=== PATIENT | female | born 1975 | race Caucasian/White ===

== ENCOUNTER 2018-03-13 21:46 | Emergency (ER) | payer SELFPAY ==
[~2018-03-13] VITALS: Ht 154.9 cm; Wt 96.2 kg
[2018-03-13 21:53] VITALS: Ht 154.9 cm; Wt 96.2 kg
[2018-03-13 22:16] LABS: BASOPHIL % 0.1 % (0-2); PLATELET COUNT 245 x10^3mcL (130-400)
[2018-03-13 22:25] LABS: CALCIUM 8.8 mg/dL (8.5-10.1); CARBON DIOXIDE 22.1 mmol/L (21-32); CHLORIDE SERUM 101 mmol/L (98-107); CREATININE SERUM 0.9 mg/dL (0.6-1.0); GFR1 > 60 mL/min; GLUCOSE SERUM 105 mg/dL (74-106); POTASSIUM SERUM 3.2 mmol/L (3.5-5.1); SODIUM SERUM 138 mmol/L (136-145)
[2018-03-13 22:31] LABS: ALBUMIN 3.5 g/dL (3.4-5.0); ALKALINE PHOSPHATASE 70 U/L (46-116); ALT/SGPT 29 U/L (14-59); AST/SGOT 19 U/L (15-37); BILIRUBIN TOTAL 0.5 mg/dL (0.20-1.00); TOTAL PROTEIN, SERUM 7.4 g/dL (6.4-8.2)
[2018-03-13 22:35] LABS: RED CELL DISTRIBUTION WIDTH 15.1 % (11.5-14.5)
[2018-03-14 00:03] VITALS: BP 155/93
== END 2018-03-14 00:03 | disposition home or self-care (01) ==
LOC: ED 21:46
PROVIDERS: Emergency Medicine
DX: N10 Acute pyelonephritis (principal); E87.6 Hypokalemia; G43.909 Migraine, unspecified, not intractable, without status migrainosus
CPT/HCPCS: J0696; J1885; J2405; J7030; Q0092

== ENCOUNTER 2018-03-17 17:40 | Inpatient (IN) | payer BC ==
[~2018-03-17] VITALS: Ht 154.9 cm; Wt 93.4 kg
[2018-03-17 18:08] VITALS: Ht 154.9 cm; Wt 93.4 kg
[2018-03-17] MEDS ORDERED: GOOD SENSE OMEP20 MG PO (19:00)
[2018-03-17 19:17] LABS: AMPHETAMINE QUAL UR POSITIVE (See below)
[2018-03-17 19:23] LABS: BASOPHIL % 1.1 % (0-2); PLATELET COUNT 217 x10^3mcL (130-400)
[2018-03-17 19:27] LABS: UA SPECIFIC GRAVITY >=1.030 (1.005-1.035); microscopic required? YES; urine erythrocyte 3+ (NEGATIVE)
[2018-03-17 19:35] LABS: RED CELL DISTRIBUTION WIDTH 14.9 % (11.5-14.5)
[2018-03-17 19:36] LABS: CALCIUM 8.6 mg/dL (8.5-10.1); CARBON DIOXIDE 17.8 mmol/L (21-32); CHLORIDE SERUM 104 mmol/L (98-107); CREATININE SERUM 0.9 mg/dL (0.6-1.0); GFR1 > 60 mL/min; GLUCOSE SERUM 94 mg/dL (74-106); POTASSIUM SERUM 3.2 mmol/L (3.5-5.1); SODIUM SERUM 138 mmol/L (136-145)
[2018-03-17 19:41] LABS: ALKALINE PHOSPHATASE 73 U/L (46-116); ALT/SGPT 23 U/L (14-59); AST/SGOT 15 U/L (15-37); BILIRUBIN TOTAL 0.4 mg/dL (0.20-1.00); TOTAL PROTEIN, SERUM 7.1 g/dL (6.4-8.2)
[2018-03-17 19:46] LABS: ALBUMIN 3.1 g/dL (3.4-5.0)
[2018-03-17 19:49] VITALS: BP 124/81
[2018-03-17 21:06] LABS: MAGNESIUM 1.5 mg/dL (1.8-2.4); PHOSPHOROUS 3.1 mg/dL (2.5-4.9)
[2018-03-18 06:23] VITALS: BP 134/83
[2018-03-18 07:50] VITALS: BP 131/66
[2018-03-18 11:54] VITALS: BP 114/63
[2018-03-18 17:19] VITALS: BP 124/65
[2018-03-18 20:07] VITALS: BP 152/88
[2018-03-19 06:33] LABS: BASOPHIL % 0.3 % (0-2); PLATELET COUNT 221 x10^3mcL (130-400)
[2018-03-19 06:36] LABS: RED CELL DISTRIBUTION WIDTH 15.4 % (11.5-14.5)
[2018-03-19 07:04] LABS: CALCIUM 8.3 mg/dL (8.5-10.1); CHLORIDE SERUM 108 mmol/L (98-107); CREATININE SERUM 0.7 mg/dL (0.6-1.0); GFR1 > 60 mL/min; GLUCOSE SERUM 81 mg/dL (74-106); MAGNESIUM 1.5 mg/dL (1.8-2.4); PHOSPHOROUS 2.6 mg/dL (2.5-4.9); POTASSIUM SERUM 3.3 mmol/L (3.5-5.1); SODIUM SERUM 143 mmol/L (136-145)
[2018-03-19 09:24] VITALS: BP 116/74
[2018-03-19 16:50] VITALS: BP 128/63
[2018-03-19] MEDS ORDERED: COLACE100 MG PO (17:41)
[2018-03-19] MEDS ORDERED: MOT800 PO (17:41)
[2018-03-19 17:44] VITALS: BP 128/63
== END 2018-03-19 18:51 | disposition home or self-care (01) | DRG 689 ==
LOC: ED 17:40 → MU 18:43
PROVIDERS: Emergency Medicine; Family Medicine; General Practice; Internal Medicine Nephrology
DX: N39.0 Urinary tract infection, site not specified (principal); N17.0 Acute kidney failure with tubular necrosis; N28.89 Other specified disorders of kidney and ureter; G43.909 Migraine, unspecified, not intractable, without status migrainosus; E87.6 Hypokalemia; Z90.710 Acquired absence of both cervix and uterus; E83.42 Hypomagnesemia; N13.30 Unspecified hydronephrosis; Z90.49 Acquired absence of other specified parts of digestive tract; Z80.3 Family history of malignant neoplasm of breast; Z80.0 Family history of malignant neoplasm of digestive organs; Z80.1 Family history of malignant neoplasm of trachea, bronchus and lung; Z82.3 Family history of stroke; Z82.49 Family history of ischemic heart disease and other diseases of the circulatory system
CPT/HCPCS: 82962; J2270; J3010; J3475; J7030

== ENCOUNTER 2019-12-07 22:09 | Emergency (ER) | payer BC ==
[~2019-12-07] VITALS: Ht 152.4 cm; Wt 76.2 kg
[~2019-12-07 22:09] MED LIST: COLACE100 MG PO; GOOD SENSE OMEP20 MG PO; MOT800 PO
[2019-12-07 22:18] VITALS: BP 127/83
== END 2019-12-08 01:43 | disposition home or self-care (01) ==
LOC: ED 22:09
DX: S80.861A Insect bite (nonvenomous), right lower leg, initial encounter (principal); L08.9 Local infection of the skin and subcutaneous tissue, unspecified; G43.909 Migraine, unspecified, not intractable, without status migrainosus; Z90.710 Acquired absence of both cervix and uterus; W57.XXXA Bitten or stung by nonvenomous insect and other nonvenomous arthropods, initial encounter; Y93.89 Activity, other specified; Y92.89 Other specified places as the place of occurrence of the external cause; Y99.8 Other external cause status
CPT/HCPCS: J7512